=== PATIENT | male | born 1965 | race Caucasian/White ===

== ENCOUNTER 2023-02-25 13:15 | Observation (INO) ==
[2023-02-25] MEDS ORDERED: NS 0.9% 1000 ml BAG 1,000 ML IV ONE (14:59)
[2023-02-25] MEDS ORDERED: PEG 3000 GI LAVAGE 1 GALLON PO ONE (15:09)
[2023-02-25] MEDS ORDERED: Morphine 2 MG/ML SYRINGE IV PRN (19:58)
[2023-02-25] MEDS ORDERED: Enoxaparin 40 MG/0.4 ML SYR SUBCUT ONE (21:00)
[2023-02-25] MEDS ORDERED: Enoxaparin 40 MG/0.4 ML SYR SUBCUT SCH (21:00)
[2023-02-26 06:09] LABS: Hematocrit 41.8 % (38-53); Hemoglobin 14.6 g/dL (13.2-16.3); Mean Corpuscular Hemoglobin 31.6 pg (27-33); Mean Corpuscular Volume 90.3 fL (80-97); Mean Platelet Volume 8.2 fL (7.5-11.2); Platelet Count 229 10^3/uL (150-450); Red Blood Count 4.63 10^6/uL (4.06-5.63); White Blood Count 7.2 10^3/uL (3.6-10.2)
[2023-02-26 06:29] LABS: Calcium 9.1 mg/dL (8.6-10.3); Creatinine, Serum 1.11 mg/dL (0.67-1.17); Direct Bilirubin 0.2 mg/dL (0.03-0.18); Indirect Bilirubin 0.7 mg/dL (0.3-1.0); Potassium 3.8 mmol/L (3.5-5.0); Total Bilirubin 0.9 mg/dL (0.2-1.0); eGFR CKD-EPI 77.5 (>60)
[2023-02-26 08:34] LABS: INR 1.14 (0.83-1.13)
[2023-02-26] MEDS ORDERED: Ondansetron 4 mg VIAL 2 MG/ML 2 ml VIAL IV PRN (14:15)
[2023-02-26] MEDS ORDERED: Naloxone 0.4 mg VIAL 0.4 mg/ml 1 ml VIAL IV PRN (14:15)
[2023-02-26] MEDS ORDERED: fentaNYL 100 mcg/2 ml 50 MCG/ML VIAL ONE (14:31)
[2023-02-26] MEDS ORDERED: Propofol 10 MG/ML 20 ML BTL ONE ×2 (15:05→15:19)
[2023-02-26 17:02] LABS: Carcinoembryonic Antigen 520.9 ng/mL (0.1-5.0)
[2023-02-26] MEDS ORDERED: Morphine 2 MG/ML SYRINGE IV PRN (17:18)
[2023-02-26] MEDS ORDERED: Enoxaparin 40 MG/0.4 ML SYR SUBCUT SCH (21:00)
[2023-02-27 06:28] LABS: Hematocrit 43.6 % (38-53); Hemoglobin 15.4 g/dL (13.2-16.3); Mean Corpuscular Hemoglobin 32.2 pg (27-33); Mean Corpuscular Hgb Conc 35.3 g/dL (31-36); Mean Corpuscular Volume 91.3 fL (80-97); Mean Platelet Volume 8.9 fL (7.5-11.2); Platelet Count 243 10^3/uL (150-450); Red Blood Count 4.78 10^6/uL (4.06-5.63); Red Cell Distribution Width 12.9 % (12-17); White Blood Count 8.3 10^3/uL (3.6-10.2)
[2023-02-27 06:47] LABS: Calcium 9.6 mg/dL (8.6-10.3); Creatinine, Serum 1.12 mg/dL (0.67-1.17); Potassium 3.7 mmol/L (3.5-5.0); eGFR CKD-EPI 76.6 (>60)
[2023-02-27] MEDS ORDERED: Iohexol 300 (CONTRAST) 10 ML SDV IV ONE (12:33)
[2023-02-27 14:13] VITALS: BP 121/71
== END 2023-02-27 17:00 | disposition home or self-care (01) ==
LOC: EDHOLD 13:15 → ED 13:15 → SSU 16:26
PROVIDERS: ADMIT Student in an Organized Health Care Education/Training Program; ATTEND Student in an Organized Health Care Education/Training Program

== ENCOUNTER 2023-03-02 11:11 | Inpatient (IN) ==
[2023-03-02 13:27] LABS: Rapid COVID-19 Molecular Undetected (Undetected)
[2023-03-02] MEDS ORDERED: Lidocaine 1% w EPI 1:200,000 SDV 30 ML VIAL ONE (13:41)
[2023-03-02] MEDS ORDERED: Ondansetron 4 mg VIAL 2 MG/ML 2 ml VIAL ONE (13:52)
[2023-03-02] MEDS ORDERED: Succinylcholine 200 mg VIAL 20 mg/ml 10 ml VIAL (200 mg) ONE (13:52)
[2023-03-02] MEDS ORDERED: Desflurane 240 ML INH ONE (13:52)
[2023-03-02] MEDS ORDERED: Lidocaine 2% PF 5 ML VIAL ONE (13:52)
[2023-03-02] MEDS ORDERED: Rocuronium 50 mg VIAL 10 mg/ml 5 ml VIAL (50 mg) ONE ×3 (13:52→16:57)
[2023-03-02] MEDS ORDERED: Dexamethasone IV 4 MG/ML VIAL 1 ml VIAL ONE (13:52)
[2023-03-02] MEDS ORDERED: fentaNYL 250 mcg/5 ml 50 MCG/ML 5 ml VIAL (250 MCG) ONE (13:52)
[2023-03-02] MEDS ORDERED: Propofol 10 MG/ML 20 ML BTL ONE (13:52)
[2023-03-02] MEDS ORDERED: Midazolam 2 mg/2 ml VIAL 1 mg/ml 2 ml VIAL (2 mg) ONE (13:52)
[2023-03-02] MEDS ORDERED: Ertapenem 1 GM in NS 0.9% 50 ML IVPB ONE (14:00)
[2023-03-02] MEDS ORDERED: Glycopyrrolate IV 0.2 MG/ML 1 ML VIAL ONE (14:02)
[2023-03-02] MEDS ORDERED: Iohexol 180 (CONTRAST) 10 ML SDV IV ONE (15:35)
[2023-03-02] MEDS ORDERED: Phenylephrine 40 mcg/mL 10mL (400mcg) SYRINGE ONE (15:40)
[2023-03-02] MEDS ORDERED: HYDROmorphone 0.5 MG/0.5 ML SYRINGE ONE (16:15)
[2023-03-02] MEDS ORDERED: Ondansetron 4 mg VIAL 2 MG/ML 2 ml VIAL IV PRN (19:19)
[2023-03-02] MEDS ORDERED: HYDROmorphone 1 MG/1 ML SYRINGE IV SLOW PU PRN ×2 (19:27→19:35)
[2023-03-02 20:18] LABS: Calcium 9.6 mg/dL (8.6-10.3); Creatinine, Serum 1.37 mg/dL (0.67-1.17); Potassium 4.9 mmol/L (3.5-5.0); eGFR CKD-EPI 60.2 (>60)
[2023-03-02] MEDS ORDERED: NS 0.9% 1000 ml BAG 1,000 ML IV ONE (20:21)
[2023-03-02] MEDS ORDERED: HYDROmorphone 0.5 MG/0.5 ML SYRINGE IV SLOW PU PRN (20:41)
[2023-03-02] MEDS: Acetaminophen IV 1 GM/100ML 1,000 MG/100 ML BAG IV SCH (21:34)
[2023-03-02] MEDS: Lactated Ringers 1000 ml BAG 1,000 ML IV SCH (22:58)
[2023-03-03] MEDS: Acetaminophen IV 1 GM/100ML 1,000 MG/100 ML BAG IV SCH ×3 (05:21→21:47)
[2023-03-03] MEDS: Lactated Ringers 1000 ml BAG 1,000 ML IV SCH ×2 (05:25→12:33)
[2023-03-03 05:44] LABS: ABS Monocytes 0.6 10^3/uL (0.0-1.1); ABS Neutrophils 7.4 10^3/uL (1.5-7.6); ABS Nucleated RBC 0.01 10^3/ul; Hematocrit 40.1 % (38-53); Hemoglobin 14.1 g/dL (13.2-16.3); Lymphocyte % 11.5 %; Mean Corpuscular Hemoglobin 31.7 pg (27-33); Mean Corpuscular Hgb Conc 35.2 g/dL (31-36); Mean Corpuscular Volume 90.2 fL (80-97); Mean Platelet Volume 8.4 fL (7.5-11.2); Nucleated Red Blood Cells % 0.1 %/100WBC (0.0-0.8); Platelet Count 246 10^3/uL (150-450); Red Blood Count 4.45 10^6/uL (4.06-5.63); Red Cell Distribution Width 12.8 % (12-17); White Blood Count 9.1 10^3/uL (3.6-10.2)
[2023-03-03 06:00] LABS: Creatinine, Serum 1.11 mg/dL (0.67-1.17); Potassium 4.3 mmol/L (3.5-5.0); eGFR CKD-EPI 77.5 (>60)
[2023-03-04] MEDS: Acetaminophen IV 1 GM/100ML 1,000 MG/100 ML BAG IV SCH (05:29)
[2023-03-04 12:20] VITALS: BP 130/75
== END 2023-03-04 13:10 | disposition home or self-care (01) | DRG 221 ==
LOC: OR 11:11 → SSU 11:11 → OBSVTOIN 19:19
PROVIDERS: ADMIT Surgery; ATTEND Surgery